=== PATIENT | female | born 1980 | race Caucasian/White ===

== ENCOUNTER 2022-03-13 04:39 | Inpatient (IN) ==
[2022-03-13 02:39] LABS: Hemoglobin 7.3 g/dL (11.5-15.4); Mean Corpuscular Volume 64.8 fL (83.0-100.0)
[2022-03-13 02:40] LABS: Hematocrit 26.7 % (35.3-44.9); Mean Corpuscular HGB Conc 27.3 g/dL (31.6-35.5); Mean Corpuscular Hemoglobin 17.7 pg (28.0-33.3); Mean Platelet Volume 8.7 fL (9.4-12.4); Platelet Count 242 K/mcL (140-400); Red Blood Count 4.12 M/mcL (3.82-4.97); Red Cell Distribution Width 20.3 % (11.5-14.5); White Blood Count 14.9 K/mcL (4.3-11.1)
[2022-03-13 03:02] LABS: BUN/Creatinine Ratio 13 (6-26); Blood Urea Nitrogen 9 mg/dL (6-20); Calcium 8.6 mg/dL (8.6-10.3); Carbon Dioxide 25 mEq/L (23-29); Chloride 105 mEq/L (98-107); Glucose 100 mg/dL (70-105); Osmolality,Calculated 279 (280-300); Potassium 4.2 mEq/L (3.5-5.1); Sodium 135 mEq/L (136-145); eGFR For African Americans > 60 (> 60); eGFR For Non-African Americans > 60 (> 60)
[2022-03-13 03:09] LABS: Procalcitonin 0.79 ng/mL (0.00-0.15)
[2022-03-13 04:20] LABS: Ferritin 12 ng/mL (10-120); Iron < 10 mcg/dL (50-170); Transferrin 288 mg/dL (203-362)
[2022-03-13 04:23] LABS: Folate 2.9 ng/mL (3.0-16.0)
[2022-03-13 04:36] LABS: Adenovirus Not Detected (Not Detect); Bordetella Pertussis Not Detected (Not Detect); Chlamydophila pneumoniae Not Detected (Not Detect); Coronavirus 229E Not Detected (Not Detect); Coronavirus HKU1 Not Detected (Not Detect); Coronavirus NL63 Not Detected (Not Detect); Coronavirus OC43 Not Detected (Not Detect); Human Metapneumovirus Not Detected (Not Detect); Human Rhinovirus/Enterovirus Not Detected (Not Detect); Influenza A Subtype 2009 H1 Not Detected (Not Detect); Influenza B Not Detected (Not Detect); Mycoplasma pneumoniae Not Detected (Not Detect); Parainfluenza Virus 1 Not Detected (Not Detect); Parainfluenza Virus 2 Not Detected (Not Detect); Parainfluenza Virus 3 Not Detected (Not Detect); Parainfluenza Virus 4 Not Detected (Not Detect); Respiratory Syncytial Virus Not Detected (Not Detect); SARS-CoV-2 Not Detected (Not Detect)
[~2022-03-13 04:39] MED LIST: 0.9 % Sodium Chloride 1,000 ML IVC ONE; 0.9 % Sodium Chloride 1,000 ML IVC SCH; Ipratropium/Albuterol Neb 3 ML IH SCH; Melatonin 3 MG TABLET PO PRN; Naloxone 0.4 MG/ML INJ IVP PRN; Ondansetron 4 MG/2 ML VIAL IVP PRN; Vancomycin 1,750 MG/517.5 ML IV.SOLN IVPB ONE
[2022-03-13] MEDS: *HR* Heparin 5,000 UNIT/ML VIAL SQ SCH ×3 (05:35→23:08)
[2022-03-13] MEDS: MethylPREDNISolone 40 MG/ML VIAL IVP SCH ×4 (05:35→23:08)
[2022-03-13] MEDS ORDERED: Perflutren Lipid Microsphere 1.3 ML in 0.9 % Sodium Chloride 8.7 ML IVP PRN (07:26)
[2022-03-13] MEDS: Piperacillin/Tazobactam 3.375 GM in 0.9 % Sodium Chloride Mini Bag 100 ML IVPB SCH ×3 (07:49→23:08)
[2022-03-13] MEDS: Ipratropium/Albuterol Neb 3 ML IH PRN ×3 (08:49→16:03)
[2022-03-13] MEDS ORDERED: cefTRIAXone 1,000 MG in 0.9 % Sodium Chloride 10 ML IVP SCH (09:00)
[2022-03-13 09:01] LABS: Amphetamine Screen,Urine Negative ng/mL (Cutoff=1000); Barbiturate Screen,Urine Negative ng/mL (Cutoff=200); Benzodiazepines Screen,Urine Positive ng/mL (Cutoff=200); Cannabinoid Screen,Urine Negative ng/mL (Cutoff = 50); Cocaine Screen,Urine Negative ng/mL (Cutoff= 300); Opiate Screen,Urine Negative ng/mL (Cutoff=300); Phencyclidine Screen,Urine Negative ng/mL (Cutoff=25)
[2022-03-13 09:21] LABS: ABG Base Excess -2 mEq/L (-2 to 3); ABG HCO3 23 mEq/L (21-27); ABG Oxygen Saturation 95 % (95-98); ABG PCO2 42 mmHg (35-45); ABG PH 7.35 pH Units (7.32-7.45); ABG PO2 77 mmHg (85-104); ABG TCO2 24 mEq/L (20-26); Blood Gas Modality AVAPS; Blood Gas VT 450 cc
[2022-03-13] MEDS: Pantoprazole 40 MG VIAL IVP SCH (10:02)
[2022-03-13] MEDS: Azithromycin 500 MG in 0.9 % Sodium Chloride 250 ML IVPB SCH (10:02)
[2022-03-13] MEDS: Vancomycin 1,250 MG/262.5 ML IV.SOLN IVPB SCH (16:40)
[2022-03-13] MEDS: Ipratropium/Albuterol Neb 3 ML IH SCH ×2 (20:37→23:03)
[2022-03-14] MEDS: Ipratropium/Albuterol Neb 3 ML IH SCH ×6 (03:49→23:07)
[2022-03-14 04:39] LABS: Basophils % 0.1 %; Hematocrit 26.2 % (35.3-44.9); Hemoglobin 7.1 g/dL (11.5-15.4); Mean Corpuscular HGB Conc 27.1 g/dL (31.6-35.5)
[2022-03-14] MEDS ORDERED: Saliva Stimulant 44.3ml BOTTLE PO PRN ×2 (04:40→04:47)
[2022-03-14 04:41] LABS: Immature Granulocytes % 1.2 % (0-4); Lymphocytes # 0.5 K/mcL (0.6-4.6); Lymphocytes % 2.4 %; Mean Corpuscular Hemoglobin 17.7 pg (28.0-33.3); Mean Corpuscular Volume 65.2 fL (83.0-100.0); Mean Platelet Volume 8.8 fL (9.4-12.4); Monocytes # 0.6 K/mcL (0.0-1.3); Monocytes % 2.9 %; Platelet Count 281 K/mcL (140-400); Red Blood Count 4.02 M/mcL (3.82-4.97); Red Cell Distribution Width 20.5 % (11.5-14.5); Segmented Neutrophils % 93.4 %; White Blood Count 20.3 K/mcL (4.3-11.1)
[2022-03-14 04:55] LABS: VBG Ionized Calcium 1.17 mmol/L (1.15-1.35)
[2022-03-14 05:22] LABS: Anisocytosis 2+ (Not Present); Hypochromasia Present (Not Present); Microcytosis Present (Not Present)
[2022-03-14 05:23] LABS: Alanine Aminotransferase 6 Units/L (7-52); Albumin 3.1 g/dL (3.5-5.7); Albumin/Globulin Ratio 0.9 (1.1-2.2); Alkaline Phosphatase 102 Units/L (34-104); Aspartate Amino Transferase 15 Units/L (13-39); BUN/Creatinine Ratio 21 (6-26); Bilirubin,Indirect 0.3 mg/dL (0.0-1.0); Bilirubin,Total 0.3 mg/dL (0.3-1.0); Blood Urea Nitrogen 13 mg/dL (6-20); Calcium 8.6 mg/dL (8.6-10.3); Carbon Dioxide 23 mEq/L (23-29); Chloride 109 mEq/L (98-107); Globulin 3.3 g/dL (2.4-3.5); Glucose 167 mg/dL (70-105); Magnesium 2.2 mg/dL (1.6-2.6); Osmolality,Calculated 292 (280-300); Phosphorous 2.6 mg/dL (2.7-4.5); Platelet Estimate Normal (Normal); Potassium 3.7 mEq/L (3.5-5.1); Sodium 139 mEq/L (136-145); Total Protein 6.4 g/dL (6.4-8.9); eGFR For African Americans > 60 (> 60); eGFR For Non-African Americans > 60 (> 60)
[2022-03-14] MEDS: *HR* Heparin 5,000 UNIT/ML VIAL SQ SCH ×3 (06:05→21:18)
[2022-03-14] MEDS: Vancomycin 1,250 MG/262.5 ML IV.SOLN IVPB SCH ×2 (06:05→17:55)
[2022-03-14] MEDS: MethylPREDNISolone 40 MG/ML VIAL IVP SCH ×4 (06:05→23:25)
[2022-03-14] MEDS: Acetylcysteine 10% 2 ML INHSOL IH SCH ×5 (07:36→23:07)
[2022-03-14] MEDS: Piperacillin/Tazobactam 3.375 GM in 0.9 % Sodium Chloride Mini Bag 100 ML IVPB SCH ×3 (08:12→23:25)
[2022-03-14] MEDS: Azithromycin 500 MG in 0.9 % Sodium Chloride 250 ML IVPB SCH (08:12)
[2022-03-14] MEDS: Pantoprazole 40 MG VIAL IVP SCH (08:13)
[2022-03-14] MEDS ORDERED: Lidocaine -MPF 1% 5 ML AMPUL INFILT ONE (09:53)
[2022-03-14] MEDS ORDERED: Lidocaine/EPI 1:100k 1% 20 ML VIAL INFILT ONE (10:45)
[2022-03-14] MEDS: Morphine Sulfate 2 MG/ML SYRINGE IVP PRN ×4 (11:18→21:18)
[2022-03-15] MEDS: Morphine Sulfate 2 MG/ML SYRINGE IVP PRN ×6 (02:35→21:34)
[2022-03-15] MEDS: Acetylcysteine 10% 2 ML INHSOL IH SCH ×6 (04:00→23:07)
[2022-03-15] MEDS: Ipratropium/Albuterol Neb 3 ML IH SCH ×6 (04:00→23:07)
[2022-03-15 04:06] LABS: VBG Ionized Calcium 1.21 mmol/L (1.15-1.35)
[2022-03-15 04:12] LABS: Basophils % 0.1 %; Hematocrit 25.1 % (35.3-44.9); Nucleated Red Blood Cells 0.2 /100 WBC (0); Red Cell Distribution Width 20.7 % (11.5-14.5)
[2022-03-15 04:13] LABS: Hemoglobin 6.7 g/dL (11.5-15.4); Immature Granulocytes % 1.1 % (0-4); Lymphocytes # 0.4 K/mcL (0.6-4.6); Lymphocytes % 2.1 %; Mean Corpuscular HGB Conc 26.7 g/dL (31.6-35.5); Mean Corpuscular Hemoglobin 17.7 pg (28.0-33.3); Mean Corpuscular Volume 66.2 fL (83.0-100.0); Monocytes # 0.4 K/mcL (0.0-1.3); Monocytes % 2.3 %; Platelet Count 291 K/mcL (140-400); Red Blood Count 3.79 M/mcL (3.82-4.97); Segmented Neutrophils % 94.4 %; White Blood Count 18.4 K/mcL (4.3-11.1)
[2022-03-15 04:20] LABS: Neutrophils # 17.4 K/mcL (1.6-8.9)
[2022-03-15 04:21] LABS: Alanine Aminotransferase 5 Units/L (7-52); Albumin/Globulin Ratio 0.9 (1.1-2.2); Alkaline Phosphatase 90 Units/L (34-104); Aspartate Amino Transferase 14 Units/L (13-39); BUN/Creatinine Ratio 25 (6-26); Bilirubin,Indirect 0.2 mg/dL (0.0-1.0); Bilirubin,Total 0.2 mg/dL (0.3-1.0); Blood Urea Nitrogen 16 mg/dL (6-20); Calcium 8.4 mg/dL (8.6-10.3); Carbon Dioxide 25 mEq/L (23-29); Chloride 109 mEq/L (98-107); Globulin 3.5 g/dL (2.4-3.5); Glucose 149 mg/dL (70-105); Magnesium 2.4 mg/dL (1.6-2.6); Osmolality,Calculated 294 (280-300); Phosphorous 2.5 mg/dL (2.7-4.5); Potassium 3.9 mEq/L (3.5-5.1); Sodium 140 mEq/L (136-145); Total Protein 6.5 g/dL (6.4-8.9); eGFR For African Americans > 60 (> 60); eGFR For Non-African Americans > 60 (> 60)
[2022-03-15] MEDS ORDERED: 0.9 % Sodium Chloride 250 ML IVC SCH (04:45)
[2022-03-15 05:04] LABS: Anisocytosis 2+ (Not Present); Hypochromasia Present (Not Present)
[2022-03-15 05:05] LABS: Platelet Estimate Normal (Normal)
[2022-03-15] MEDS: *HR* Heparin 5,000 UNIT/ML VIAL SQ SCH ×3 (05:35→21:34)
[2022-03-15] MEDS: MethylPREDNISolone 40 MG/ML VIAL IVP SCH ×2 (05:35→17:49)
[2022-03-15] MEDS ORDERED: 0.9 % Sodium Chloride 250 ML ONE ×2 (06:26→06:41)
[2022-03-15] MEDS ORDERED: 0.9 % Sodium Chloride 500 ML ONE (06:27)
[2022-03-15] MEDS: Azithromycin 500 MG in 0.9 % Sodium Chloride 250 ML IVPB SCH (08:52)
[2022-03-15] MEDS: Pantoprazole 40 MG VIAL IVP SCH (08:53)
[2022-03-15] MEDS: Piperacillin/Tazobactam 3.375 GM in 0.9 % Sodium Chloride Mini Bag 100 ML IVPB SCH ×3 (08:53→23:39)
[2022-03-15] MEDS ORDERED: Furosemide 20 MG/2 ML VIAL IVP ONE (10:01)
[2022-03-16 03:19] LABS: Basophils % 0.1 %; Hemoglobin 7.9 g/dL (11.5-15.4); Red Cell Distribution Width 21.2 % (11.5-14.5)
[2022-03-16 03:21] LABS: Hematocrit 27.5 % (35.3-44.9); Immature Granulocytes % 1.8 % (0-4); Lymphocytes # 0.7 K/mcL (0.6-4.6); Lymphocytes % 4.6 %; Mean Corpuscular HGB Conc 28.7 g/dL (31.6-35.5); Mean Corpuscular Hemoglobin 19.5 pg (28.0-33.3); Mean Corpuscular Volume 67.7 fL (83.0-100.0); Mean Platelet Volume 8.9 fL (9.4-12.4); Monocytes # 0.4 K/mcL (0.0-1.3); Monocytes % 2.5 %; Neutrophils # 13.3 K/mcL (1.6-8.9); Nucleated Red Blood Cells 0.4 /100 WBC (0); Platelet Count 291 K/mcL (140-400); Red Blood Count 4.06 M/mcL (3.82-4.97); White Blood Count 14.6 K/mcL (4.3-11.1)
[2022-03-16 03:30] LABS: VBG Ionized Calcium 1.15 mmol/L (1.15-1.35)
[2022-03-16] MEDS: Acetylcysteine 10% 2 ML INHSOL IH SCH ×2 (03:40→07:58)
[2022-03-16] MEDS: Ipratropium/Albuterol Neb 3 ML IH SCH ×6 (03:40→23:54)
[2022-03-16 03:49] LABS: Alanine Aminotransferase 8 Units/L (7-52); Albumin/Globulin Ratio 0.9 (1.1-2.2); Alkaline Phosphatase 86 Units/L (34-104); Aspartate Amino Transferase 12 Units/L (13-39); BUN/Creatinine Ratio 30 (6-26); Bilirubin,Indirect 0.3 mg/dL (0.0-1.0); Bilirubin,Total 0.3 mg/dL (0.3-1.0); Blood Urea Nitrogen 18 mg/dL (6-20); Calcium 8.1 mg/dL (8.6-10.3); Carbon Dioxide 26 mEq/L (23-29); Chloride 107 mEq/L (98-107); Globulin 3.2 g/dL (2.4-3.5); Glucose 141 mg/dL (70-105); Magnesium 2.2 mg/dL (1.6-2.6); Osmolality,Calculated 294 (280-300); Phosphorous 3.2 mg/dL (2.7-4.5); Potassium 3.7 mEq/L (3.5-5.1); Sodium 140 mEq/L (136-145); Total Protein 6.2 g/dL (6.4-8.9); eGFR For African Americans > 60 (> 60); eGFR For Non-African Americans > 60 (> 60)
[2022-03-16 03:59] LABS: Platelet Estimate Normal (Normal)
[2022-03-16 04:00] LABS: Anisocytosis 2+ (Not Present); Hypochromasia Present (Not Present); Microcytosis Present (Not Present); Poikilocytosis 1+ (Not Present)
[2022-03-16] MEDS: MethylPREDNISolone 40 MG/ML VIAL IVP SCH ×2 (04:56→17:00)
[2022-03-16] MEDS: *HR* Heparin 5,000 UNIT/ML VIAL SQ SCH ×3 (04:57→20:57)
[2022-03-16] MEDS: Piperacillin/Tazobactam 3.375 GM in 0.9 % Sodium Chloride Mini Bag 100 ML IVPB SCH ×2 (09:30→16:58)
[2022-03-16] MEDS: Azithromycin 500 MG in 0.9 % Sodium Chloride 250 ML IVPB SCH (09:31)
[2022-03-16] MEDS: Pantoprazole 40 MG VIAL IVP SCH (09:31)
[2022-03-16] MEDS ORDERED: Melatonin 3 MG TABLET PO PRN (19:26)
[2022-03-16] MEDS ORDERED: Ipratropium/Albuterol Neb 3 ML IH PRN (19:26)
[2022-03-16] MEDS ORDERED: Ondansetron 4 MG/2 ML VIAL IVP PRN (19:26)
[2022-03-16] MEDS ORDERED: 0.9 % Sodium Chloride 250 ML IVC SCH (19:26)
[2022-03-16] MEDS ORDERED: Saliva Stimulant 44.3ml BOTTLE PO PRN ×2 (19:26)
[2022-03-16] MEDS ORDERED: Perflutren Lipid Microsphere 1.3 ML in 0.9 % Sodium Chloride 8.7 ML IVP PRN (19:26)
[2022-03-16] MEDS ORDERED: Morphine Sulfate 2 MG/ML SYRINGE IVP PRN (19:26)
[2022-03-16] MEDS ORDERED: Naloxone 0.4 MG/ML INJ IVP PRN (19:26)
[2022-03-17] MEDS: Piperacillin/Tazobactam 3.375 GM in 0.9 % Sodium Chloride Mini Bag 100 ML IVPB SCH ×3 (01:02→16:33)
[2022-03-17] MEDS: Ipratropium/Albuterol Neb 3 ML IH SCH ×5 (04:49→20:08)
[2022-03-17 05:17] LABS: VBG Ionized Calcium 1.18 mmol/L (1.15-1.35)
[2022-03-17 05:31] LABS: Hematocrit 30.2 % (35.3-44.9); Immature Granulocytes % 2.7 % (0-4); Monocytes % 4.3 %; Nucleated Red Blood Cells 0.3 /100 WBC (0)
[2022-03-17 05:32] LABS: Alanine Aminotransferase 8 Units/L (7-52); Alkaline Phosphatase 76 Units/L (34-104); Aspartate Amino Transferase 10 Units/L (13-39); BUN/Creatinine Ratio 37 (6-26); Bilirubin,Total 0.3 mg/dL (0.3-1.0); Blood Urea Nitrogen 26 mg/dL (6-20); Calcium 8.3 mg/dL (8.6-10.3); Carbon Dioxide 28 mEq/L (23-29); Chloride 107 mEq/L (98-107); Glucose 117 mg/dL (70-105); Magnesium 2.3 mg/dL (1.6-2.6); Osmolality,Calculated 298 (280-300); Phosphorous 3.8 mg/dL (2.7-4.5); Potassium 4.4 mEq/L (3.5-5.1); Sodium 141 mEq/L (136-145); eGFR For African Americans > 60 (> 60); eGFR For Non-African Americans > 60 (> 60)
[2022-03-17 05:33] LABS: Basophils % 0.2 %; Hemoglobin 8.3 g/dL (11.5-15.4); Lymphocytes % 8.2 %; Mean Corpuscular HGB Conc 27.5 g/dL (31.6-35.5); Mean Corpuscular Hemoglobin 18.7 pg (28.0-33.3); Mean Corpuscular Volume 68.2 fL (83.0-100.0); Mean Platelet Volume 8.6 fL (9.4-12.4); Monocytes # 0.5 K/mcL (0.0-1.3); Neutrophils # 10.2 K/mcL (1.6-8.9); Platelet Count 323 K/mcL (140-400); Red Blood Count 4.43 M/mcL (3.82-4.97); Red Cell Distribution Width 22.1 % (11.5-14.5); Segmented Neutrophils % 84.6 %
[2022-03-17] MEDS: MethylPREDNISolone 40 MG/ML VIAL IVP SCH ×2 (06:04→18:02)
[2022-03-17] MEDS: *HR* Heparin 5,000 UNIT/ML VIAL SQ SCH ×3 (06:04→21:06)
[2022-03-17 06:18] LABS: Anisocytosis 2+ (Not Present)
[2022-03-17 06:19] LABS: Hypochromasia Present (Not Present); Platelet Estimate Normal (Normal)
[2022-03-17] MEDS: Pantoprazole 40 MG VIAL IVP SCH (08:15)
[2022-03-17] MEDS: Azithromycin 500 MG in 0.9 % Sodium Chloride 250 ML IVPB SCH (08:15)
[2022-03-17 12:13] LABS: % Iron Saturation 4 % (15-50); Iron 17 mcg/dL (50-170); Transferrin 290 mg/dL (203-362)
[2022-03-17 12:31] LABS: Ferritin 36 ng/mL (10-120)
[2022-03-18] MEDS: Ipratropium/Albuterol Neb 3 ML IH SCH ×7 (00:37→23:11)
[2022-03-18] MEDS: Piperacillin/Tazobactam 3.375 GM in 0.9 % Sodium Chloride Mini Bag 100 ML IVPB SCH ×3 (00:54→14:48)
[2022-03-18 02:48] LABS: VBG Ionized Calcium 1.13 mmol/L (1.15-1.35)
[2022-03-18 02:55] LABS: Basophils % 0.3 %; Hematocrit 27.8 % (35.3-44.9); Hemoglobin 8.1 g/dL (11.5-15.4); Immature Granulocytes % 4.1 % (0-4); Lymphocytes # 1.1 K/mcL (0.6-4.6); Lymphocytes % 9.3 %; Mean Corpuscular HGB Conc 29.1 g/dL (31.6-35.5); Mean Corpuscular Hemoglobin 19.1 pg (28.0-33.3); Mean Corpuscular Volume 65.4 fL (83.0-100.0); Mean Platelet Volume 8.6 fL (9.4-12.4); Monocytes # 0.4 K/mcL (0.0-1.3); Monocytes % 3.8 %; Neutrophils # 9.4 K/mcL (1.6-8.9); Nucleated Red Blood Cells 0.4 /100 WBC (0); Platelet Count 328 K/mcL (140-400); Red Blood Count 4.25 M/mcL (3.82-4.97); Red Cell Distribution Width 22.7 % (11.5-14.5); Segmented Neutrophils % 82.5 %; White Blood Count 11.4 K/mcL (4.3-11.1)
[2022-03-18 03:24] LABS: Anisocytosis 3+ (Not Present); Microcytosis Present (Not Present); Platelet Estimate Normal (Normal)
[2022-03-18 04:14] LABS: Alanine Aminotransferase 12 Units/L (7-52); Albumin 3.2 g/dL (3.5-5.7); Albumin/Globulin Ratio 1.1 (1.1-2.2); Alkaline Phosphatase 72 Units/L (34-104); Aspartate Amino Transferase 16 Units/L (13-39); BUN/Creatinine Ratio 33 (6-26); Bilirubin,Total 0.4 mg/dL (0.3-1.0); Blood Urea Nitrogen 23 mg/dL (6-20); Calcium 8.4 mg/dL (8.6-10.3); Carbon Dioxide 27 mEq/L (23-29); Chloride 104 mEq/L (98-107); Glucose 136 mg/dL (70-105); Magnesium 2.3 mg/dL (1.6-2.6); Osmolality,Calculated 292 (280-300); Phosphorous 4.4 mg/dL (2.7-4.5); Potassium 4.6 mEq/L (3.5-5.1); Sodium 138 mEq/L (136-145); Total Protein 6.2 g/dL (6.4-8.9); eGFR For African Americans > 60 (> 60); eGFR For Non-African Americans > 60 (> 60)
[2022-03-18] MEDS: MethylPREDNISolone 40 MG/ML VIAL IVP SCH (04:53)
[2022-03-18] MEDS: *HR* Heparin 5,000 UNIT/ML VIAL SQ SCH ×3 (04:54→21:08)
[2022-03-18] MEDS: Azithromycin 500 MG in 0.9 % Sodium Chloride 250 ML IVPB SCH (07:55)
[2022-03-18] MEDS: Pantoprazole 40 MG VIAL IVP SCH (07:56)
[2022-03-19] MEDS: Piperacillin/Tazobactam 3.375 GM in 0.9 % Sodium Chloride Mini Bag 100 ML IVPB SCH ×3 (00:05→16:31)
[2022-03-19 02:51] LABS: Red Cell Distribution Width 23.4 % (11.5-14.5)
[2022-03-19 02:53] LABS: Hematocrit 28.5 % (35.3-44.9); Mean Corpuscular HGB Conc 28.1 g/dL (31.6-35.5); Mean Corpuscular Volume 67.5 fL (83.0-100.0); Mean Platelet Volume 8.7 fL (9.4-12.4); Platelet Count 317 K/mcL (140-400); Red Blood Count 4.22 M/mcL (3.82-4.97); White Blood Count 13.7 K/mcL (4.3-11.1)
[2022-03-19 03:10] LABS: BUN/Creatinine Ratio 28 (6-26); Blood Urea Nitrogen 18 mg/dL (6-20); Calcium 8.1 mg/dL (8.6-10.3); Carbon Dioxide 27 mEq/L (23-29); Chloride 103 mEq/L (98-107); Glucose 86 mg/dL (70-105); Osmolality,Calculated 283 (280-300); Potassium 3.8 mEq/L (3.5-5.1); Sodium 136 mEq/L (136-145); eGFR For African Americans > 60 (> 60); eGFR For Non-African Americans > 60 (> 60)
[2022-03-19] MEDS: Ipratropium/Albuterol Neb 3 ML IH SCH ×6 (03:14→23:16)
[2022-03-19] MEDS: *HR* Heparin 5,000 UNIT/ML VIAL SQ SCH ×3 (05:56→22:12)
[2022-03-19] MEDS: predniSONE 20 MG TABLET PO SCH (07:54)
[2022-03-19] MEDS: Azithromycin 500 MG in 0.9 % Sodium Chloride 250 ML IVPB SCH (07:55)
[2022-03-19] MEDS ORDERED: Saline Nasal Spray 44 ML BOTTLE NS PRN (17:04)
[2022-03-20] MEDS: Ipratropium/Albuterol Neb 3 ML IH SCH ×5 (03:45→20:02)
[2022-03-20 04:15] LABS: Hemoglobin 8.6 g/dL (11.5-15.4)
[2022-03-20 04:17] LABS: Hematocrit 30.6 % (35.3-44.9); Mean Corpuscular HGB Conc 28.1 g/dL (31.6-35.5); Mean Corpuscular Hemoglobin 19.1 pg (28.0-33.3); Mean Corpuscular Volume 67.8 fL (83.0-100.0); Mean Platelet Volume 8.6 fL (9.4-12.4); Platelet Count 294 K/mcL (140-400); Red Blood Count 4.51 M/mcL (3.82-4.97); White Blood Count 12.6 K/mcL (4.3-11.1)
[2022-03-20] MEDS: *HR* Heparin 5,000 UNIT/ML VIAL SQ SCH ×3 (04:23→22:47)
[2022-03-20 04:45] LABS: BUN/Creatinine Ratio 32 (6-26); Blood Urea Nitrogen 20 mg/dL (6-20); Calcium 8.6 mg/dL (8.6-10.3); Carbon Dioxide 27 mEq/L (23-29); Chloride 102 mEq/L (98-107); Glucose 84 mg/dL (70-105); Osmolality,Calculated 284 (280-300); Sodium 136 mEq/L (136-145); eGFR For African Americans > 60 (> 60); eGFR For Non-African Americans > 60 (> 60)
[2022-03-20] MEDS: predniSONE 20 MG TABLET PO SCH (08:46)
[2022-03-20] MEDS ORDERED: *HR* FentaNYL (PF) 100 MCG/2 ML VIAL ONE (11:21)
[2022-03-20] MEDS ORDERED: *HR* Midazolam HCl 5 MG/5 ML VIAL IVP ONE (11:26)
[2022-03-20] MEDS ORDERED: Ringers Solution, Lactated 1,000 ML IVC SCH (11:45)
[2022-03-20] MEDS ORDERED: Lidocaine -MPF 0.5% 40 ML, Syringe CATH TIP 1 EACH IX ONE (12:00)
[2022-03-20] MEDS ORDERED: Talc (sterile) 4 GM, 0.9 % Sodium Chloride 50 ML, Syringe CATH TIP 1 EACH IX ONE (12:00)
[2022-03-20] MEDS ORDERED: *HR* FentaNYL (PF) 100 MCG/2 ML VIAL IVP ONE (12:38)
[2022-03-20] MEDS ORDERED: *HR* Midazolam HCl 2 MG/2 ML VIAL IVP ONE (12:39)
[2022-03-20] MEDS: *HR* HYDROmorphone (PF) 1 MG/ML SYRINGE IVP PRN ×2 (17:49→22:47)
[2022-03-20] MEDS: Nicotine 21 MG PATCH.TD24 TD SCH (18:20)
[2022-03-21] MEDS: Ipratropium/Albuterol Neb 3 ML IH SCH ×7 (00:02→23:43)
[2022-03-21] MEDS ORDERED: 0.9 % Sodium Chloride 500 ML IV ONE (02:09)
[2022-03-21] MEDS: *HR* HYDROmorphone (PF) 1 MG/ML SYRINGE IVP PRN ×4 (03:03→18:09)
[2022-03-21 04:39] LABS: ABG Base Excess 1 mEq/L (-2 to 3); ABG HCO3 24 mEq/L (21-27); ABG Oxygen Saturation 98 % (95-98); ABG PCO2 36 mmHg (35-45); ABG PH 7.44 pH Units (7.32-7.45); ABG PO2 104 mmHg (85-104); ABG TCO2 25 mEq/L (20-26)
[2022-03-21] MEDS ORDERED: *HR* LORazepam 0.5 MG TABLET PO ONE (04:50)
[2022-03-21] MEDS: *HR* Heparin 5,000 UNIT/ML VIAL SQ SCH ×3 (05:03→19:48)
[2022-03-21] MEDS ORDERED: *HR* HYDROmorphone 2 MG/ML SYRINGE IVP ONE (07:01)
[2022-03-21] MEDS: Nicotine 21 MG PATCH.TD24 TD SCH (07:53)
[2022-03-21] MEDS ORDERED: predniSONE 20 MG TABLET PO SCH (09:00)
[2022-03-21 11:13] LABS: Mean Corpuscular HGB Conc 28.3 g/dL (31.6-35.5)
[2022-03-21 11:14] LABS: Hematocrit 38.1 % (35.3-44.9); Hemoglobin 10.8 g/dL (11.5-15.4); Mean Platelet Volume 8.6 fL (9.4-12.4); Platelet Count 339 K/mcL (140-400); Red Blood Count 5.69 M/mcL (3.82-4.97); Red Cell Distribution Width 25.4 % (11.5-14.5)
[2022-03-21 11:21] LABS: White Blood Count 37.9 K/mcL (4.3-11.1)
[2022-03-21 11:27] LABS: BUN/Creatinine Ratio 19 (6-26); Blood Urea Nitrogen 12 mg/dL (6-20); Calcium 8.8 mg/dL (8.6-10.3); Carbon Dioxide 26 mEq/L (23-29); Chloride 97 mEq/L (98-107); Glucose 148 mg/dL (70-105); Osmolality,Calculated 271 (280-300); Potassium 4.6 mEq/L (3.5-5.1); Sodium 129 mEq/L (136-145); eGFR For African Americans > 60 (> 60); eGFR For Non-African Americans > 60 (> 60)
[2022-03-21 12:13] LABS: Lymphocytes # 3.8 K/mcL (0.6-4.6); Monocytes # 2.3 K/mcL (0.0-1.3); Neutrophils # 31.8 K/mcL (1.6-8.9)
[2022-03-21 12:14] LABS: Anisocytosis 2+ (Not Present); Hypochromasia Present (Not Present); Platelet Estimate Normal (Normal); Poikilocytosis 2+ (Not Present)
[2022-03-21] MEDS: Ketorolac 30 MG/ML VIAL IVP PRN ×2 (14:46→21:09)
[2022-03-21] MEDS: 0.9 % Sodium Chloride 1,000 ML IVC SCH (21:09)
[2022-03-22 00:36] LABS: Eosinophils % 1.3 %; Red Cell Distribution Width 24.9 % (11.5-14.5)
[2022-03-22 00:37] LABS: Basophils % 0.2 %; Eosinophils # 0.3 K/mcL (0.0-0.6); Hematocrit 32.7 % (35.3-44.9); Hemoglobin 9.1 g/dL (11.5-15.4); Immature Granulocytes % 1.1 % (0-4); Lymphocytes # 2.2 K/mcL (0.6-4.6); Lymphocytes % 8.8 %; Mean Corpuscular HGB Conc 27.8 g/dL (31.6-35.5); Mean Corpuscular Hemoglobin 18.8 pg (28.0-33.3); Mean Corpuscular Volume 67.6 fL (83.0-100.0); Mean Platelet Volume 8.4 fL (9.4-12.4); Monocytes # 1.1 K/mcL (0.0-1.3); Monocytes % 4.5 %; Neutrophils # 20.7 K/mcL (1.6-8.9); Platelet Count 257 K/mcL (140-400); Red Blood Count 4.84 M/mcL (3.82-4.97); Segmented Neutrophils % 84.1 %; White Blood Count 24.6 K/mcL (4.3-11.1)
[2022-03-22 00:41] LABS: Basophils # 0.1 K/mcL (0.0-0.2)
[2022-03-22] MEDS: *HR* HYDROmorphone (PF) 1 MG/ML SYRINGE IVP PRN ×5 (00:44→23:35)
[2022-03-22 00:54] LABS: BUN/Creatinine Ratio 22 (6-26); Blood Urea Nitrogen 13 mg/dL (6-20); Calcium 8.8 mg/dL (8.6-10.3); Carbon Dioxide 27 mEq/L (23-29); Chloride 101 mEq/L (98-107); Glucose 111 mg/dL (70-105); Osmolality,Calculated 277 (280-300); Potassium 4.3 mEq/L (3.5-5.1); Sodium 133 mEq/L (136-145); eGFR For African Americans > 60 (> 60); eGFR For Non-African Americans > 60 (> 60)
[2022-03-22 01:00] LABS: Anisocytosis 2+ (Not Present); Hypochromasia Present (Not Present); Platelet Estimate Normal (Normal); Poikilocytosis 1+ (Not Present)
[2022-03-22] MEDS: Ipratropium/Albuterol Neb 3 ML IH SCH (04:15)
[2022-03-22] MEDS: Ketorolac 30 MG/ML VIAL IVP PRN (05:07)
[2022-03-22] MEDS: *HR* Heparin 5,000 UNIT/ML VIAL SQ SCH ×3 (05:08→19:33)
[2022-03-22] MEDS: Levalbuterol Neb 0.63 MG/3 ML IH SCH ×5 (07:28→23:50)
[2022-03-22] MEDS: Nicotine 21 MG PATCH.TD24 TD SCH (07:40)
[2022-03-22] MEDS ORDERED: Furosemide 40 MG/4 ML VIAL IVP ONE (11:33)
[2022-03-22] MEDS ORDERED: Ketorolac 30 MG/ML VIAL IVP PRN (11:40)
[2022-03-22] MEDS: Metoprolol XL (24 HR) Succ 25 MG TAB.ER.24H PO SCH (12:41)
[2022-03-23 00:52] LABS: Basophils % 0.1 %; Red Blood Count 4.46 M/mcL (3.82-4.97)
[2022-03-23 00:53] LABS: Eosinophils # 0.3 K/mcL (0.0-0.6); Eosinophils % 1.7 %; Hematocrit 29.8 % (35.3-44.9); Hemoglobin 8.5 g/dL (11.5-15.4); Lymphocytes # 2.5 K/mcL (0.6-4.6); Lymphocytes % 12.5 %; Mean Corpuscular HGB Conc 28.5 g/dL (31.6-35.5); Mean Corpuscular Hemoglobin 19.1 pg (28.0-33.3); Mean Corpuscular Volume 66.8 fL (83.0-100.0); Monocytes % 5.1 %; Neutrophils # 15.8 K/mcL (1.6-8.9); Platelet Count 296 K/mcL (140-400); Segmented Neutrophils % 79.6 %; White Blood Count 19.9 K/mcL (4.3-11.1)
[2022-03-23 01:06] LABS: BUN/Creatinine Ratio 24 (6-26); Blood Urea Nitrogen 15 mg/dL (6-20); Calcium 8.9 mg/dL (8.6-10.3); Carbon Dioxide 28 mEq/L (23-29); Chloride 98 mEq/L (98-107); Glucose 86 mg/dL (70-105); Osmolality,Calculated 274 (280-300); Potassium 4.2 mEq/L (3.5-5.1); Sodium 132 mEq/L (136-145); eGFR For African Americans > 60 (> 60); eGFR For Non-African Americans > 60 (> 60)
[2022-03-23 01:42] LABS: Hypochromasia Present (Not Present)
[2022-03-23 01:43] LABS: Anisocytosis 3+ (Not Present); Microcytosis Present (Not Present); Platelet Estimate Normal (Normal)
[2022-03-23] MEDS: Levalbuterol Neb 0.63 MG/3 ML IH SCH ×4 (04:34→16:26)
[2022-03-23] MEDS: *HR* Heparin 5,000 UNIT/ML VIAL SQ SCH ×2 (05:22→14:09)
[2022-03-23 07:10] VITALS: TEMP 98.1
[2022-03-23] MEDS: Metoprolol XL (24 HR) Succ 25 MG TAB.ER.24H PO SCH (08:30)
[2022-03-23] MEDS: Nicotine 21 MG PATCH.TD24 TD SCH (08:31)
[2022-03-23 11:29] VITALS: BP 102/62; PULSE 111; O2SAT 100
[2022-03-23] MEDS: 0.9 % Sodium Chloride 1,000 ML IVC SCH (15:47)
== END 2022-03-23 17:21 | disposition home or self-care (01) | DRG 720 ==
LOC: 2NENU → SUATTDRO 04:39 → ICNU 05:19 → 2NNU 03-16 18:34 → 2NENU 03-18 00:17
PROVIDERS: ADMIT Student in an Organized Health Care Education/Training Program; ATTEND Internal Medicine